=== PATIENT | male | born 1960 ===

== ENCOUNTER 2022-03-14 05:00 | Day surgery (SDC) | payer OTHER ==
[~2022-03-14 05:00] MED LIST: LOSARTAN POTAS100 MG PO
== END 2022-03-14 16:20 | disposition home or self-care (01) ==
LOC: CIR.AMB 05:00
PROVIDERS: ATTEND Specialist
DX: K43.9 Ventral hernia without obstruction or gangrene (principal); Z91.013 Allergy to seafood; Z88.0 Allergy status to penicillin; I10 Essential (primary) hypertension; Z71.6 Tobacco abuse counseling; F17.210 Nicotine dependence, cigarettes, uncomplicated